=== PATIENT | male | born 1945 | race Two or more races ===

== ENCOUNTER → 2024-07-10 | Outpatient (CLI) | payer OTHER, SELFPAY ==
[2024-07-10 08:15] LABS: Collection Type, Urine Clean Catch
[2024-07-10 08:16] LABS: Squamous Epithelial Cell,Urine 0 /hpf (0-5)
[2024-07-10 08:48] LABS: Basophils % (Auto) 1 % (0-2.5); Eosinophils # (Auto) 0.2 Thou/mm3 (0.0-0.5); Eosinophils % (Auto) 3 % (0-10); Hematocrit 42.4 % (41.0-53.0); Hemoglobin 14.2 g/dL (13.5-16.0); Immature Granulocytes % (Auto) 0 % (0-0); Immature Granulocytes Auto 0.01 Thou/mm3 (0.00-0.00); Lymphocytes # (Auto) 1.9 Thou/mm3 (1.0-4.8); Lymphocytes % (Auto) 31 % (10-50); Mean Corpuscular HGB Conc 33.5 g/dl (31.0-37.0); Mean Corpuscular Hemoglobin 30.3 pg (25.0-35.0); Mean Corpuscular Volume 90 fL (80-100); Monocytes # (Auto) 0.6 Thou/mm3 (0.0-0.8); Monocytes % (Auto) 10 % (0-12); Neutrophils # (Auto) 3.4 Thou/mm3 (1.8-7.7); Neutrophils % (Auto) 56 % (37-80); Nucleated Red Blood Cell % 0 /100 WBC (0); Platelet Count 196 Thou/mm3 (140-440); RDW Standard Deviation 43.8 fL (35.1-43.9); Red Blood Count 4.69 Miln/mm3 (4.50-5.90); White Blood Count 6.2 Thou/mm3 (3.8-10.6)
[2024-07-10 08:58] LABS: PSA Medicare Annual Scrn 2.18 ng/mL (0-4.00)
[2024-07-10 09:08] LABS: Alanine Aminotransferase 15 U/L (10-49); Albumin, Serum 4.1 gm/dL (3.4-4.8); Alkaline Phosphatase 61 U/L (46-116); Anion Gap 8 (7-16); Aspartate Amino Transferase 10 U/L (0-34); BUN/Creatinine Ratio 15 Ratio (12-20); Bilirubin,Total 0.7 mg/dL (0.3-1.2); Blood Urea Nitrogen 15 mg/dL (9-23); Calcium 9.2 mg/dL (8.3-10.6); Calcium (Corrected) 9.2 mg/dL (8.5-10.1); Carbon Dioxide 28.8 mMol/L (20.0-31.0); Cardiac Risk Estimate 4.2 RATIO (4.0-6.7); Chloride 106 mMol/L (98-107); Cholesterol 188 mg/dL (132-200); Globulin 2.1 gm/dL (2.3-3.5); Glucose 91 mg/dL (74-106); HDL Cholesterol 45 mg/dL (40-60); LDL Cholesterol,Calculated 122 mg/dL (0-130); Osmolality,Calculated 285 (275-295); Potassium 4.7 mMol/L (3.4-5.1); Sodium 143 mMol/L (136-145); Total Protein 6.2 gm/dL (5.7-8.2); Triglycerides 105 mg/dL (30-150); eGFR > 60 See Note
[2024-07-10 09:27] LABS: Glucose Estimated Average 103 mg/dL (80-131); Hemoglobin A1C 5.2 % Hgb (4.8-6.0)
[2024-07-10 09:27] LABS: Bilirubin,Urine Negative (Negative); Blood,Urine Negative (Negative); Clarity,Urine Clear (Clear/Hazy); Color,Urine Yellow (Lt Yel-Yel); Culture Indicated,Urine Not Indicated; Glucose, Urine Negative (Negative); Ketones,Urine Negative (Negative); Leukocyte Esterase,Urine Negative (Negative); Nitrite,Urine Negative (Negative); PH,Urine 6.5 (5.0-7.0); Protein,Urine Negative (Neg - Trace); RBC,Urine 1 /hpf (0-3); Specific Gravity,Urine 1.023 (1.001-1.035); Urobilinogen,Urine Negative mg/dL (0.0-1.0); WBC,Urine < 1 /hpf (0-5)
== END | disposition home or self-care (01) ==
LOC: COPL 07:05
PROVIDERS: PCP Internal Medicine; Referring Provider Internal Medicine; Visit Provider Internal Medicine
DX: E78.5 Hyperlipidemia, unspecified (principal); I10 Essential (primary) hypertension; K59.00 Constipation, unspecified; R35.1 Nocturia
CPT/HCPCS: 36415; 80053; 80061; 81001; 83036; 84153; 85025; G0103

== ENCOUNTER → 2024-08-04 | Outpatient (CLI) | payer OTHER, SELFPAY ==
--- NOTE | 2024-08-04 13:40 | XR_ITS ---
Examination: Bone densitometry Date and time of exam:August 04, 2024 1309 hours INDICATIONS: 78-year-old male with diagnosis age related osteoporosis Technique: Lumbar spine and hip total bone mineralization values of an calculated. Peak reference and age match control results have been displayed. Findings: Lumbar spine total bone mineralization is0.835 gm/cm2. This is 2.3 standard deviations below peak reference. This is 1.2 standard deviations below age-matched controls. Hip total bone mineralization is 0.961 gm/cm2 This is 0.7 standard deviations below peak reference. This is 0.2 standard deviations above age-matched controls Impression: There is edema based on lumbar spine measurements. There is osteopenia based on hip measurements
== END | disposition home or self-care (01) ==
PROVIDERS: PCP Internal Medicine; Referring Provider Internal Medicine; Visit Provider Internal Medicine
DX: R60.0 Localized edema (principal); M85.88 Other specified disorders of bone density and structure, other site
CPT/HCPCS: 77080

== ENCOUNTER 2025-03-27 05:40 | Day surgery (SDC) | payer OTHER, SELFPAY ==
--- NOTE | 2025-03-26 06:00 | EKG_ITS ---
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 : 1945 Requested By: Colby Greenfield Order Number: [id number] Reading MD: Colby Greenfield Measurements Intervals Basehor Rate: 60 P: -50 NM: 201 QRS: -46 QRSD: 126 T: 132 QT: 436 QTc: 436 Interpretive Statements ECTOPIC ATRIAL RHYTHM WITH OCCASIONAL VENTRICULAR PREMATURE COMPLEXES POSSIBLE RIGHT VENTRICULAR CONDUCTION DELAY [RSR (QR) IN V1/V2] LEFT ANTERIOR FASCICULAR BLOCK [QRS AXIS <= -45, QR IN I, RS IN II] LEFT VENTRICULAR HYPERTROPHY AND ST-T CHANGE [VOLTAGE CRITERIA PLUS ST/T ABNORMALITY] POSSIBLE SEPTAL MYOCARDIAL INFARCTION , PROBABLY OLD [30 ms Q WAVE IN V1/V2] PROBABLE LATERAL MYOCARDIAL INFARCTION , OF INDETERMINATE AGE [35 ms Q WAVE IN I/aVL/V5/V6] No previous ECG available for comparison /[id number]/[id number]
[2025-03-26 10:00] VITALS: BMI 27.8
[2025-03-26 11:55] LABS: Basophils # (Auto) 0.0 Thou/mm3 (0.0-0.2); Basophils % (Auto) 0 % (0-2.5); Eosinophils # (Auto) 0.1 Thou/mm3 (0.0-0.5); Eosinophils % (Auto) 1 % (0-10); Hematocrit 42.8 % (41.0-53.0); Hemoglobin 13.9 g/dL (13.5-16.0); Immature Granulocytes Auto 0.02 Thou/mm3 (0.00-0.00); Lymphocytes # (Auto) 2.0 Thou/mm3 (1.0-4.8); Lymphocytes % (Auto) 29 % (10-50); Mean Corpuscular HGB Conc 32.5 g/dl (31.0-37.0); Mean Corpuscular Hemoglobin 30.4 pg (25.0-35.0); Mean Corpuscular Volume 94 fL (80-100); Monocytes # (Auto) 0.6 Thou/mm3 (0.0-0.8); Monocytes % (Auto) 9 % (0-12); Neutrophils # (Auto) 4.1 Thou/mm3 (1.8-7.7); Neutrophils % (Auto) 60 % (37-80); Nucleated Red Blood Cell # 0.00 Thou/mm3 (0.00-0.00); Nucleated Red Blood Cell % 0 /100 WBC (0); Platelet Count 183 Thou/mm3 (140-440); RDW Standard Deviation 46.5 fL (35.1-43.9); Red Blood Count 4.57 Miln/mm3 (4.50-5.90); White Blood Count 6.9 Thou/mm3 (3.8-10.6)
[2025-03-26 12:00] LABS: INR 1.0 (0.9-1.3); Partial Thromboplastin Time 27.9 Seconds (22.0-36.0); Prothrombin Time 10.5 Seconds (9.0-12.2)
[2025-03-26 12:04] LABS: Alanine Aminotransferase 13 U/L (10-49); Albumin, Serum 4.4 gm/dL (3.4-4.8); Albumin/Globulin Ratio 1.9 (1.2-2.2); Alkaline Phosphatase 60 U/L (46-116); Anion Gap 9 (7-16); Aspartate Amino Transferase 16 U/L (0-34); BUN/Creatinine Ratio 16 Ratio (12-20); Bilirubin,Total 0.6 mg/dL (0.3-1.2); Blood Urea Nitrogen 16 mg/dL (9-23); Calcium 9.6 mg/dL (8.3-10.6); Calcium (Corrected) 9.6 mg/dL (8.5-10.1); Carbon Dioxide 29.5 mMol/L (20.0-31.0); Chloride 108 mMol/L (98-107); Creatinine (Component) 1.0 mg/dL (0.6-1.3); Estimated Creatinine Clearance 60.9 mL/min (>60); Globulin 2.3 gm/dL (2.3-3.5); Glucose 94 mg/dL (74-106); Osmolality,Calculated 291 (275-295); Potassium 4.5 mMol/L (3.4-5.1); Sodium 146 mMol/L (136-145); Total Protein 6.7 gm/dL (5.7-8.2); eGFR > 60 See Note
[2025-03-27] VITALS (8 sets, daily range): BP systolic 144–183; BP diastolic 80–101; PULSE 69–81; RESP 13–21; TEMP 36.8–37; O2SAT 95–100; BMI 27.7
[2025-03-27] MEDS: RINGERS LACTATED 1000 ML 1,000 ML 20 ML IV (07:05)
--- NOTE | 2025-03-27 07:29 | CHAP ---
Visited with patient giving encouragement and prayer before procedure.
--- NOTE | 2025-03-27 11:00 | SUR.PHASEI ---
1048: Pt received in [facility] vis yulissa. Pt obtunded. Appears confused lookiing around. Resp even, unlabored. VS stable. Dressing bilateral groin dry, clean, intact. No c/o of pain.
--- NOTE | 2025-03-27 11:11 | PD.SUROPNT ---
Date of Procedure 03/27/25 Pre Op Diagnosis Bilateral inguinal hernias, symptomatic Post Op Diagnosis Same with indirect hernia on the left side and both direct and indirect hernias on the right side Procedure Repair of left inguinal hernia with ligation of the sac and closure of the internal ring and placement of 2 x 4 Marlex mesh 2. Repair of the right indirect and direct inguinal hernia with placement of a 2 x 4 Marlex mesh on the floor of the inguinal canal. Findings Patient was found to have a large defect through the internal ring on the left side where the hernia was larger and more symptomatic. Patient was found to have very patulous internal ring and the sac containing a portion of the wall due to sigmoid colon. On the right side patient had weakness on the inguinal floor presenting as a direct hernia on the preperitoneal fat herniating through the internal ring Procedure Description After the patient was brought to the operating room endotracheal anesthesia was given. Lower abdomen was shaved and prepped with ChloraPrep solution and draped in a sterile manner. Timeout was performed. I started the left side first and I made incision for about 7 cm in length over the left groin. I incised the Radha's fascia and resection oblique which was opened. The ilioinguinal nerve was protected. Cord structures were very large and encircled around [place] drain. Patient had a considerable amount of fatty tissue with the cord structures which were and ligated and divided. Then he noticed a sac which was [place] and contain sigmoid colon. But the portion of the sigmoid colon was stuck to the wall of the sac. I closed the sac without injuring the sigmoid colon and skeletonized the cord structures. I found out that the patient had a large patulous opening lateral to the cord structures on the left side. The opening was large enough to apply extra-large plug. But I decided not to use plug but rather close the wound primarily with approximating the internal oblique to the shelving edge of the inguinal ligament with interrupted 0 Ethibond sutures with a CT 2 needle. 1 stitch was placed medial to the cord structures to repair the anterior defect. At the end the cord structures were tight at the internal ring. The floor of the inguinal canal was not weak but I placed a 2 x 4 Marlex mesh attached it medially to the pubic tubercle and laterally it was tucked underneath the external oblique to reinforce my repair. 1 stitch was placed with 2-0 Prolene lateral to the cord structures. Then the external oblique was closed with a running 2-0 Vicryl and the subcutaneous tissues closed with 3-0 plain and injected half percent Marcaine for analgesia. Skin was closed with 4-0 Monocryl subcuticular stitch and dressing was applied with Adaptic and 4 x 4 gauze. Then the right inguinal hernia was approached in a standard way. Cord structures were encircled after incising the external oblique and patient was found to have a no indirect sac. However he had some preperitoneal fat coming through the internal ring which was suture-ligated with 2-0 chromic after clamping with a Promise clamp. The floor of the inguinal canal showed 2 weaknesses through which preperitoneal fat was bulging through. The anterior floor was not bulging but there is 2 areas were. I clamped it with a Promise clamp and divided this and suture-ligated with a 2-0 chromic. The both the defects were treated this way open I placed 2 x 4 Marlex mesh on the floor of the inguinal canal and stitched it medially to the pubic tubercle. Laterally it was tucked underneath the external oblique after crossing the cord structures. Then external oblique was closed with a running 2-0 Vicryl on the subcutaneous tissue was closed with 3-0 plain. After injecting half percent Marcaine skin was closed with 4-0 Monocryl subcuticular stitch. Dressing was applied with Adaptic and 4 x 4 gauze and patient tolerated the procedure well. Anesthesia GETA Implants 2 x 4 Marlex mesh on both sides Pathology / specimen None IVF Infused 1,000 Estimated Blood Loss 30 Condition Stable Disposition PACU Surgeon Germania Velarde MD Surgical Staff Operation Date: 03/27/25 08:00 Case Staff Anesthesiologist: Seth Avila RN First Assistant: Sandy Bernal
--- NOTE | 2025-03-27 11:18 | SUR.PHASEI ---
1115: Pt has been resting with no complaints voiced. Resp even, unlabored. VS stable. Dressing remains dry, clean, intact.
--- NOTE | 2025-03-27 11:42 | SUR.PHASEII ---
1125: Pt has been resting with no complaints voiced. Dr. Velarde wants the pt to void before discharge. Pt stated he needed to void and urinal provided. 1143: VS stable. Dressing remains dry, clean, intact. No complaints of pain. Pt unable to void. Continues to try.
--- NOTE | 2025-03-27 16:07 | SUR.PHASEII ---
1150: Pt voided using urinal 300cc clear yellow urine. 1220: Pt fully awake, oriented x3. VS stable. Dressing bilateral groin dry, clean, intact. States he has very little pain with movement. Pt dressed. Assisted to restroom to void again. Pt and friend stated understanding of discharge instructions via interpreter deaf Maritza. Pt discharged from [facility] in stable condition.
== END 2025-03-27 12:20 | disposition home or self-care (01) ==
PROVIDERS: PCP Internal Medicine; Referring Provider Surgery; Visit Provider Surgery
PROC: (CPT 49505; principal; 2025-03-27 08:00)
DX: K40.20 Bilateral inguinal hernia, without obstruction or gangrene, not specified as recurrent (principal); Z01.810 Encounter for preprocedural cardiovascular examination; I10 Essential (primary) hypertension; Z79.899 Other long term (current) drug therapy
CPT/HCPCS: 49505; 36415; 80053; 85025; 85610; 85730; 93005; A4649; C1781; J0131; J1100; J1885; J2250; J2405; J2704; J3010; J3490; J7120; A9270